=== PATIENT | male | born 1990 | race Caucasian/White ===

== ENCOUNTER 2018-08-29 08:43 | Emergency (ER) | payer SELFPAY ==
[~2018-08-29] VITALS: Ht 185.4 cm; Wt 102.1 kg
--- NOTE | 2018-08-29 12:12 | Diagnostic Imaging Report ---
PROCEDURE:ANKLE 3+ VIEWS LEFT INDICATION:Status post fall COMPARISON:None. FINDINGS:There is no fracture or dislocation. Soft tissue swelling adjacent to the lateral malleolus is present. The ankle mortise appears intact. CONCLUSION:Soft tissue swelling without evidence of a bony fracture. Koby Hughes D.O. Dictated by: Koby Hughes D.O. on 08/29/2018 at 12:20 Electronically approved by: Koby Hughes D.O. on 08/29/2018 at 12:20
[2018-08-29 12:19] VITALS: BP 127/88
== END 2018-08-29 12:11 | disposition home or self-care (01) ==
LOC: ER 08:43
DX: S93.492A Sprain of other ligament of left ankle, initial encounter (principal); X50.1XXA Overexertion from prolonged static or awkward postures, initial encounter; Y92.008 Other place in unspecified non-institutional (private) residence as the place of occurrence of the external cause; R26.89 Other abnormalities of gait and mobility; F17.210 Nicotine dependence, cigarettes, uncomplicated
CPT/HCPCS: 99283